=== PATIENT | female | born 1985 | race Hispanic/Latino ===

== ENCOUNTER 2022-01-24 16:17 | Emergency (ER) | payer MEDICAID, OTHER ==
[~2022-01-24] VITALS: Ht 165.1 cm; Wt 54.4 kg
[2022-01-24 16:22] VITALS: BP 143/95
== END 2022-01-24 19:50 | disposition left against medical advice (07) ==
LOC: EDH 16:17
DX: J32.9 Chronic sinusitis, unspecified (principal); Z53.21 Procedure and treatment not carried out due to patient leaving prior to being seen by health care provider

== ENCOUNTER 2023-10-19 20:58 | Emergency (ER) | payer OTHER ==
[~2023-10-19] VITALS: Ht 165.1 cm; Wt 49.0 kg
[2023-10-19 22:56] LABS: APPEARANCE,URINE CLEAR (CLEAR); BILIRUBIN,URINE NEGATIVE (NEGATIVE); COLOR,URINE LIGHT-YELLOW (YELLOW); GLUCOSE, URINE (UA) NEGATIVE (NEGATIVE); KETONES,URINE NEGATIVE (NEGATIVE); LEUKOCYTE ESTERASE ,URINE NEGATIVE Leu/uL (NEGATIVE); NITRATE,URINE NEGATIVE (NEGATIVE); OCCULT BLOOD,URINE LARGE (NEGATIVE); PROTEIN,URINE NEGATIVE (NEGATIVE); UROBILINOGEN,URINE 0.2 mg/dL (0.2-1.0)
[2023-10-19 22:57] LABS: ADD UA MICROSCOPIC YES
[2023-10-19 23:00] VITALS: BP 145/84; PULSE 73; RESP 18; O2SAT 100
[2023-10-19 23:09] LABS: MUCUS,URINE RARE LPF (None Seen); RBC,URINE TNTC /HPF (0-1); SQUAMOUS EPITHELIAL CELL,UR RARE /HPF (0-2)
== END 2023-10-20 00:26 | disposition home or self-care (01) ==
LOC: EDH 20:58
DX: N89.5 Stricture and atresia of vagina (principal); Z98.890 Other specified postprocedural states
CPT/HCPCS: 81001

== ENCOUNTER 2025-01-30 12:47 | Emergency (ER) | payer SELFPAY ==
[~2025-01-30] VITALS: Ht 165.1 cm; Wt 54.4 kg
[2025-01-30 12:47] VITALS: BP 154/98; PULSE 91; RESP 20; TEMP 98.4
[2025-01-30 13:32] LABS: INFLUENZA TYPE A Negative For Type A (NEGATIVE); INFLUENZA TYPE B Negative For Type B (NEGATIVE)
[2025-01-30 14:24] LABS: SARS-CoV-2, RNA, NAAT NEGATIVE SARS CoV-2 (NEGATIVE)
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
== END 2025-01-30 14:33 | disposition left against medical advice (07) ==
LOC: EDH 12:47
DX: R51.9 Headache, unspecified (principal); R09.81 Nasal congestion; M25.562 Pain in left knee; Z20.822 Contact with and (suspected) exposure to COVID-19
CPT/HCPCS: 99284; 87635; 87804 ×2; 96372 ×2; J1100; J1885